=== PATIENT | male | born 1990 | race Two or more races ===

== ENCOUNTER 2021-10-05 18:14 | Emergency (ER) | payer OTHER ==
[~2021-10-05] VITALS: Ht 177.8 cm; Wt 117.9 kg
[2021-10-05 18:17] VITALS: BP 147/96
== END 2021-10-06 01:05 | disposition left against medical advice (07) ==
LOC: ER 18:14
DX: K61.1 Rectal abscess (principal); Z53.21 Procedure and treatment not carried out due to patient leaving prior to being seen by health care provider